=== PATIENT | female | born 1990 | race Two or more races ===

== ENCOUNTER 2017-05-21 16:22 | Emergency (ER) | payer MEDICAID ==
[~2017-05-21] VITALS: Ht 157.5 cm; Wt 81.6 kg
[~2017-05-21 16:22] MED LIST: ACYCLOVIR200 MG ORAL; LIDOCAINE HCL5 ML MM; VALACYCLOVIR500 MG ORAL
[2017-05-21 16:35] VITALS: BP 110/67
[2017-05-21] MEDS ORDERED: ACYCLOVIR400 MG ORAL (16:48)
[2017-05-21 16:58] VITALS: BP 110/67
--- NOTE | 2017-05-21 21:58 | Emergency Room Report ---
History of Present Illness General Chief Complaint: Skin Rash/Abscess Source: Patient Present Illness HPI The patient is a 26-year-old female presenting for herpetic outbreak. She states that she has genital herpes which was diagnosed last year. Pain is an 8/ 10 burning sensation to the pelvic region. Does not radiate. Worse with touch. She denies any vaginal discharge, dysuria, hematuria, or increased urinary frequency. She has taken acyclovir at the last onset of symptoms and states that it helped. She has been tested for STDs and HPV within the past month which were all negative. Allergies: Coded Allergies: No Known Allergies (Unverified , 04/11/16) Patient History Past Medical History: see triage record Pertinent Family History: none Reviewed Nursing Documentation: PMH: Agreed, PSxH: Agreed Nursing Documentation-PMH Past Medical History: No History, Except For Hx Diabetes: No - HERPES Review of Systems All Other Systems: negative except mentioned in HPI Physical Exam Vital Signs Date Time Temp Pulse Resp B/P (MAP) Pulse Ox O2 Delivery O2 Flow Rate FiO2 05/21/17 16:29 98.1 66 20 110/67 99 Room Air Sp02 EP Interpretation: reviewed, normal General Appearance: no apparent distress, alert, GCS 15, non-toxic Head: normocephalic, atraumatic Eyes: bilateral eye normal inspection, bilateral eye PERRL ENT: hearing grossly normal, normal pharynx, no angioedema, normal voice Neck: full range of motion, supple/symm/no masses Respiratory: chest non-tender, lungs clear, normal breath sounds, speaking full sentences Gastrointestinal: normal bowel sounds, non tender, soft, non-distended, no guarding, no rebound Musculoskeletal: back normal, gait/station normal, normal range of motion, non- tender Neurologic: alert, oriented x3, responsive, motor strength/tone normal, sensory intact, speech normal Psychiatric: judgement/insight normal, memory normal, mood/affect normal, no suicidal/homicidal ideation Skin: normal color, no rash, warm/dry, well hydrated Medical Decision Making PA Attestation Dr. Duron is my supervising physician. Patient management was discussed with my supervising physician Diagnostic Impression: Primary Impression: Herpes genitalia Qualified Codes: A60.00 - Herpesviral infection of urogenital system, unspecified ER Course The patient is a 26-year-old female presenting for herpetic outbreak. Differential diagnosis considered but not limited to: UTI, STI, vaginitis, pyelonephritis, pyelonephrosis, PID, ectopic PE: Vitals WNL. NAD. Abdomen: Normal appearance. Non distended. No ecchymosis. Normal BS. Non TTP. No McBurney point tenderness. No guarding. No CVA tenderness Pt refused to have testing done and did not want genitals examined. SHe understands the risks associated with this. Pt will be DC'ed home with prescription for acyclovir and will see PMD. ER precautions given Last Vital Signs Date Time Temp Pulse Resp B/P (MAP) Pulse Ox O2 Delivery O2 Flow Rate FiO2 05/21/17 16:58 98.1 80 20 110/67 99 Room Air Status: improved Disposition: HOME, SELF-CARE Condition: Improved Scripts Acyclovir* (ACYCLOVIR*) 400 Mg Tablet 400 MG ORAL Q8HR, #30 TAB Prov: VINI WOOTEN 05/21/17 Referrals: [facility],REFERRING (PCP) Patient Instructions: Genital Herpes Additional Instructions: I discussed my findings with the patient. All questions and concerns have been answered. Treatment and medication compliance have been addressed. I advised the patient that they need to follow up with PMD in 3-5 days. Return to ED if symptoms worsen, new symptoms arise, or if needed for any reason. Patient verbalized understanding of discharge instructions. VINI WOOTEN May 21, 2017 21:58
== END 2017-05-21 16:58 | disposition home or self-care (01) ==
LOC: EMR 16:46
DX: A60.00 Herpesviral infection of urogenital system, unspecified (principal)
CPT/HCPCS: 99283